=== PATIENT | male | born 2000 | race Caucasian/White ===

== ENCOUNTER 2020-02-10 16:54 | Emergency (ER) | payer OTHER ==
[2020-02-10 17:10] VITALS: BP 139/95; PULSE 105; TEMP 97.9; BMI 21.9
[2020-02-10] MEDS ORDERED: FAMOTIDINE 20 MG/50 ML IVPB 20 MG/50 ML MG IVPB ONE ×2 (17:26→17:39)
[2020-02-10] MEDS ORDERED: SODIUM CHLORIDE 1,000 ML IV STA (17:26)
[2020-02-10] MEDS ORDERED: ONDANSETRON 4 MG/2 ML VIAL IVPUSH ONE (17:27)
--- OUTSIDE RECORDS SUMMARY | 2020-02-10 17:30 | XMS ---
:2000 Author Organization [facility] Care Team Providers Name Role Phone Carmen Chakraborty Unavailable Chakraborty, Carmen Unavailable Chakraborty, Carmen Unavailable Chakraborty, Carmen Unavailable Mook Burch Unavailable [phone] CINTIA Rosenberg Unavailable Unavailable ED STAFF PHYSICIAN, STAFF Unavailable Unavailable ZUNASSIGNED Unavailable Unavailable CAMILLA ROGERS Unavailable Unavailable REYNALDO THORPE Unavailable Unavailable Re-disclosure Warning The records that you are about to access may contain information from federally- assisted alcohol or drug abuse programs. If such information is present, then the following federally mandated warning applies: This information has been disclosed to you from records protected by federal confidentiality rules (42 CFR part 2). The federal rules prohibit you from making any further disclosure of this information unless further disclosure is expressly permitted by the written consent of the person to whom it pertains or as otherwise permitted by 42 CFR part 2. A general authorization for the release of medical or other information is NOT sufficient for this purpose. The Federal rules restrict any use of the information to criminally investigate or prosecute any alcohol or drug abuse patient.The records that you are about to access may contain highly sensitive health information, the redisclosure of which is protected by Article 27-F of the [facility] Public Health law. If you continue you may haveaccess to information: Regarding HIV / AIDS; Provided by facilities licensed or operated by the [facility] Office of Mental Health; or Provided by the [facility] Office for People With Developmental Disabilities. If such information is present, then the following [facility] mandated warning applies: This information has been disclosed to you from confidential records which are protected by state law. State law prohibits you from making any further disclosure of this information without the specific written consent of the person to whom it pertains, or as otherwise permitted by law. Any unauthorized further disclosure in violation of state law may result in a fine or senior care sentence or both. A general authorization for the release of medical or other information is NOT sufficient authorization for further disclosure. Encounters Encounter Providers Location Date Indications Data Source(s ) Emergency Attender: CINTIA Madrigal 01/20/2020 [facility] OBDULIA Conway: 11:09:00 AM [facility] Center STAFF ED STAFF EDT - PHYSICIANAdmitter: 01/20/2020 CINTIA STEINER 06:06:00 PM KReferrer: EDT ZUNASSIGNED Patient discharged. Outpatient 10/20/2019 [facility] 10:39:00 AM EDT Medical C enter Outpatient 10/20/2019 [facility] 12:00:00 AM EDT Medical C enter Outpatient 10/04/2019 [facility] 11:39:00 AM EDT Medical C enter Outpatient 10/04/2019 [facility] 12:00:00 AM EDT Medical C enter Outpatient 09/20/2019 [facility] 11:51:00 AM EDT Medical C enter Outpatient Attender: Rohan 09/20/2019 [facility] CAMILLA MORRISON 09:52:00 AM EDT Medical Center CAMILLA PAdmitter: CAMILLA SAMPSON PReferrer: CAMILLA Reddy OutpatientOFFICE/ Attender: [facility] 09/20/2019 NOELGEN ([facility] OUTPATIENT VISIT, Elier Burch 09:52:00 AM EDT [facility] 09/20/2019 [place]) 09:52:00 AM EDT Outpatient 09/20/2019 [facility] 12:00:00 AM EDT Medical C enter Attender: Carmen Perkins 08/08/2019 NOELG EN ([facility] Nephrology 12:06:00 PM EDT - [facility] 08/08/2019 [facility] ) 12:06:00 PM EDT Emergency Attender: REYNALDO Madrigal 03/20/2019 [facility] Marvin au ELLEN JACOBS 03:18:00 PM [facility] - [facility] CAttender: 03/20/2019 STAFF ED STAFF 05:38:00 PM EST PHYSICIANAdmitt er: REYNALDO Soni Patient discharged. 03/20/2019 12:00:00 AM EST [facility] Outpatient 02/22/2019 10:50:00 AM EDT [facility] Outpatient 02/22/2019 12:00:00 AM EDT [facility] Outpatient 02/17/2019 11:57:00 AM EDT [facility] Outpatient 02/17/2019 12:00:00 AM EDT [facility] Immunizations Vaccine Date Status Description Data Source(s) Tdap 03/20/2019 05:05:00 PM [facility] completed [facility] Insurance Providers Payer name Policy type Policy ID Covered Covered democrat's Policy P matthew / Coverage democrat ID relationship to [facility] ormation type hussein ANGELA [id number] HEALTH NON CAP ANGELA CARE W [id number] 01 [id number] [place] [id number] [place] AFFINITY O [id number] 01 [id number] HEALTH PLAN AFFINITY O [id number] HEALTH PLAN Problems, Conditions, and Diagnoses Code Display Name Description Problem Type Effective Dates Data Source(s) Y99.9 Unspecified UNSPECIFIED Diagnosis 01/20/2020 [facility] external cause EXTERNAL CAUSE 11:09:00 AM EDT [facility] status STATUS Y92.[address] Diagnosis 01/20/2020 [facility] or not applicable OR NOT APPLICABLE 11:09:00 AM EDT Medical Center Y93.9 Activity, ACTIVITY, Diagnosis 01/20/2020 [place] unspecified UNSPECIFIED 11:09:00 AM EDT Medical Center X58.XXXA Exposure to other EXPOSURE TO OTHER Diagnosis 01/20/2020 [facility] specified SPECIFIED 11:09:00 AM EDT Medical C enter factors, initial FACTORS, INITIAL encounter ENCOUNTER T40.1X1A Poisoning by POISONING BY Diagnosis 01/20/2020 [facility] [place] [facility] heroin, HEROIN, 11:09:00 AM EDT Medical C enter accidental ACCIDENTAL (unintentional), (UNINTENTIONAL), initial encounter INIT ENCNTR R11.10 Vomiting, VOMITING, Diagnosis 01/20/2020 [facility] unspecified UNSPECIFIED 11:09:00 AM EDT Medical Center M21.612 Bunion of left BUNION OF LEFT Diagnosis 09/20/2019 [facility] foot FOOT 09:52:00 AM EDT Medical C enter M21.41 Flat foot [pes FLAT FOOT (PES Diagnosis 09/20/2019 [facility] planus] PLANUS) 09:52:00 AM EDT Medical C enter (acquired), right (ACQUIRED), RIGHT foot FOOT M21.42 Flat foot [pes FLAT FOOT (PES Diagnosis 09/20/2019 [facility] planus] PLANUS) 09:52:00 AM EDT Medical C enter (acquired), left (ACQUIRED), LEFT foot FOOT 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 09/20/2019 [facility] tendon TENDON 09:52:00 AM EDT Medical C enter (acquired), right (ACQUIRED), RIGHT ankle ANKLE 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 Diagnosis 09/20/2019 [facility] tendon TENDON 09:52:00 AM EDT Medical C enter (acquired), left (ACQUIRED), LEFT ankle ANKLE M25.571 Pain in right PAIN IN RIGHT Diagnosis 09/20/2019 [facility] joints ANKLE AND JOINTS 09:52:00 AM E DT [facility] Center of right foot OF RIGHT FOOT M25.572 Pain in left PAIN IN LEFT Diagnosis 09/20/2019 [facility] ankle and joints ANKLE AND JOINTS 09:52:00 AM E DT Medical Center of left foot OF LEFT FOOT M25.372 Other OTHER Diagnosis 09/20/2019 [facility] instability, left INSTABILITY, LEFT 09:52:00 AM EDT Medical Center ankle ANKLE Y99.0 Civilian activity CIVILIAN ACTIVITY Diagnosis 03/20/2019 [facility] done for income DONE FOR INCOME 03:18:00 PM EST Medical Center or pay OR PAY Y92.89 Other specified OTH PLACES THE Diagnosis 03/20/2019 [facility] places as the PLACE OF 03:18:00 PM EST Medica l Center place of OCCURRENCE OF THE occurrence of the EXTERNAL CAUSE external cause Y93.89 Activity, other ACTIVITY, OTHER Diagnosis 03/20/2019 [facility] specified SPECIFIED 03:18:00 PM EST Medical C enter W26.9XXA Contact with CONTACT WITH Diagnosis 03/20/2019 [facility] unspecified sharp UNSPECIFIED SHARP 03:18:00 PM [facility] Center object(s), OBJECT(S), initial encounter INITIAL ENCOUNTER S61.012A Laceration LACERATION W/O FB Diagnosis 03/20/2019 [facility] without foreign OF LEFT THUMB W/O 03:18:00 PM E [facility] body of left DAMAGE TO NAIL, thumb without INIT damage to nail, initial encounter Surgeries/Procedures Procedure Description Date Indications Data Source(s) OFFICE/OUTPATIENT 09/20/2019 [facility] ([facility] VISIT, EST 12:00:00 AM EDT - Medical Ce nter) 09/20/2019 12:00:00 AM EDT Results ID Date Data Source Liver 01/20/2020 01:20:00 PM EDT [facility] Profile.[id number] Name Value Range Interpretation Description Data Sup porting Code Source(s) Document(s ) Alkaline 38-126 <content [facility] phosphatase styleCode="Bold"> [facility] [Enzymatic Alkaline Medical activity/volume] Phosphatase (ALP) Cente r in Serum or Plasma </content>80 IU/L<content styleCode="Italic s"> (38-126 IU/L)</content> Aspartate 17-59 <content [facility] aminotransferase styleCode="Bold"> [facility] [Enzymatic Aspartate Medical activity/volume] Aminotransferase Center in Serum or Plasma (AST) </content>31 IU/L<content styleCode="Italic s"> (17-59 IU/L)</content> Alanine 7-50 <content [facility] aminotransferase styleCode="Bold"> [facility] [Enzymatic Alanine Medical activity/volume] Aminotransferase Center in Serum or Plasma (ALT) </content>19 IU/L<content styleCode="Italic s"> (7-50 IU/L)</content> Bilirubin.total 0.2-1.3 Above high <content [facility] [Mass/volume] in normal styleCode="Bold"> [facility] Serum or Plasma Bilirubin Total Medical </content>2.2 Center MG/DL H<content styleCode="Italic s"> (0.2-1.3 MG/DL)</content> UNK 0.0-0.3 <content [facility] styleCode="Bold"> [facility] Bilirubin, Direct Medical </content>< 0.2 Center MG/DL<content styleCode="Italic s"> (0.0-0.3 MG/DL)</content> Albumin 3.5-5.0 Above high <content [facility] [Mass/volume] in normal styleCode="Bold"> [facility] Serum or Plasma Albumin Medical </content>5.9 Center G/DL H<content styleCode="Italic s"> (3.5-5.0 G/DL)</content> ID Date Data Source HematologyRou.[id number] 01/20/2020 01:20:00 PM EDT [facility] 0400 Name Value Range Interpretation Description Data Sup porting Code Source(s) Document(s ) Leukocytes 4.4-11.0 Above high <content [facility] [#/volume] in normal styleCode="Bold [facility] Blood by ">White Blood Medical Automated count Cell Count Center </content>11.67 KCUMM H<content styleCode="Ital ics"> (4.4-11.0 KCUMM)</content > Erythrocytes 4.4-5.9 <content [facility] [#/volume] in styleCode="Bold [facility] Blood by ">Red Blood Medical Automated count Cell Count Center </content>5.71 MCUMM<content styleCode="Ital ics"> (4.4-5.9 MCUMM)</content > Hematocrit 41.0-53. <content [facility] [Volume 0 styleCode="Bold [facility] Fraction] of ">Hematocrit Medical Blood by </content>51.1 Center Automated count %<content styleCode="Ital ics"> (41.0-53.0 %)</content> Hemoglobin 13.5-17. Above high <content [facility] [Mass/volume] in 5 normal styleCode="Bold [facility] Blood ">Hemoglobin Medical </content>18.3 Center G/DL H<content styleCode="Ital ics"> (13.5-17.5 G/DL)</content> Erythrocyte 11.5-14. <content [facility] distribution 5 styleCode="Bold [facility] width [Ratio] by ">Red Cell Medical Automated count Distribution Center Width </content>12.1 %<content styleCode="Ital ics"> (11.5-14.5 %)</content> Erythrocyte mean 32.0-37. <content [facility] corpuscular 0 styleCode="Bold [facility] hemoglobin ">Mean Corpus. Medical concentration Hgb Center [Mass/volume] by Concentration Automated count (MCHC) </content>35.8 G/DL<content styleCode="Ital ics"> (32.0-37.0 G/DL)</content> Platelets 130-400 <content [facility] [#/volume] in styleCode="Bold [facility] Blood by ">Platelet Medical Automated count Count Center </content>231 KCUMM<content styleCode="Ital ics"> (130-400 KCUMM)</content > Erythrocyte mean 80.0-100 <content [facility] corpuscular .0 styleCode="Bold [facility] volume [Entitic ">Mean Medical volume] by Corpuscular Center Automated count Volume </content>89.5 FL<content styleCode="Ital ics"> (80.0-100.0 FL)</content> Platelet mean 8.0-11.0 <content [facility] volume [Entitic styleCode="Bold [facility] volume] in Blood ">Mean Platelet Medical by Automated Volume Center count </content>10.0 FL<content styleCode="Ital ics"> (8.0-11.0 FL)</content> Erythrocyte mean 26.0-34. <content [facility] corpuscular 0 styleCode="Bold [facility] hemoglobin ">Mean Medical [Entitic mass] Corposcular Center by Automated Hemoglobin count </content>32.0 PG<content styleCode="Ital ics"> (26.0-34.0 PG)</content> UNK 0 <content [facility] styleCode="Bold [facility] ">Nucleated Red Medical Blood Cell Center </content>0.0 /100<content styleCode="Ital ics"> (0 /100)</content> UNK 0.0 <content [facility] styleCode="Bold [facility] ">Nucleated Red Medical Blood Cell Center Count </content>0.00 KCUMM<content styleCode="Ital ics"> (0.0 KCUMM)</content > ID Date Data Source GFR(Creatinine).[id number] 01/20/2020 01:20:00 PM EDT [facility] 0-0400 Name Value Range Interpretation Code Description Data Malathi rce(s) Supporting Document(s ) UNK > 60 <content [facility] styleCode="Bold"> Medical Cent er EGFR </content>131 GFR<content styleCode="Italic s"> (> 60 GFR)</content> ID Date Data Source CHMROUTINECCDA.[id number] 01/20/2020 01:20:00 PM EDT [facility] -0400 Name Value Range Interpretation Description Data Sup porting Code Source(s) Document(s ) Lipase 23-300 <content [facility] [Enzymatic styleCode="Bold Medical activity/vo ">Lipase Center lume] in </content>113 Serum or IU/L<content Plasma styleCode="Ital ics"> (23-300 IU/L)</content> ID Date Data Source [facility].[id number] 01/20/2020 01:20:00 PM EDT [facility] Name Value Range Interpretation Description Data Sup porting Code Source(s) Document(s ) Sodium 137-145 <content [facility] [Moles/volume] in styleCode="Bold"> [facility] Serum or Plasma Sodium Medical </content>138 Center MEQ/L<content styleCode="Italic s"> (137-145 MEQ/L)</content> Chloride 98-107 Below low <content [facility] [Moles/volume] in normal styleCode="Bold"> [facility] Serum or Plasma Chloride Medical </content>94 Center MEQ/L L<content styleCode="Italic s"> (98-107 MEQ/L)</content> Carbon dioxide, 22-30 <content [facility] total styleCode="Bold"> [facility] [Moles/volume] in Carbon Dioxide Medical Serum or Plasma </content>29 Center MEQ/L<content styleCode="Italic s"> (22-30 MEQ/L)</content> Potassium 3.5-5.3 <content [facility] [Moles/volume] in styleCode="Bold"> [facility] Serum or Plasma Potassium Medical </content>3.6 Center MEQ/L<content styleCode="Italic s"> (3.5-5.3 MEQ/L)</content> Creatinine 0.5-1.3 <content [facility] [Mass/volume] in styleCode="Bold"> [facility] Serum or Plasma Creatinine Medical </content>0.8 Center MG/DL<content styleCode="Italic s"> (0.5-1.3 MG/DL)</content> UNK 9-20 <content [facility] styleCode="Bold"> [facility] BUN </content>16 Medical MG/DL<content Center styleCode="Italic s"> (9-20 MG/DL)</content> Aspartate 17-59 <content [facility] aminotransferase styleCode="Bold"> [facility] [Enzymatic Aspartate Medical activity/volume] Aminotransferase Center in Serum or Plasma (AST) </content>31 IU/L<content styleCode="Italic s"> (17-59 IU/L)</content> Glucose 74-106 <content [facility] [Mass/volume] in styleCode="Bold"> [facility] Serum or Plasma Glucose Medical </content>80 Center MG/DL<content styleCode="Italic s"> (74-106 MG/DL)</content> Calcium 8.4-10. Above high <content [facility] [Mass/volume] in 2 normal styleCode="Bold"> [facility] Serum or Plasma Calcium Medical </content>11.3 Center MG/DL H<content styleCode="Italic s"> (8.4-10.2 MG/DL)</content> Alkaline 38-126 <content [facility] phosphatase styleCode="Bold"> [facility] [Enzymatic Alkaline Medical activity/volume] Phosphatase (ALP) Cente r in Serum or Plasma </content>80 IU/L<content styleCode="Italic s"> (38-126 IU/L)</content> Alanine 7-50 <content [facility] aminotransferase styleCode="Bold"> [facility] [Enzymatic Alanine Medical activity/volume] Aminotransferase Center in Serum or Plasma (ALT) </content>19 IU/L<content styleCode="Italic s"> (7-50 IU/L)</content> UNK > 60 <content [facility] styleCode="Bold"> [facility] EGFR Medical </content>131 Center GFR<content styleCode="Italic s"> (> 60 GFR)</content> Bilirubin.total 0.2-1.3 Above high <content [facility] [Mass/volume] in normal styleCode="Bold"> [facility] Serum or Plasma Bilirubin Total Medical </content>2.2 Center MG/DL H<content styleCode="Italic s"> (0.2-1.3 MG/DL)</content> Albumin 3.5-5.0 Above high <content [facility] [Mass/volume] in normal styleCode="Bold"> [facility] Serum or Plasma Albumin Medical </content>5.9 Center G/DL H<content styleCode="Italic s"> (3.5-5.0 G/DL)</content> Procedure Social History Code Duration Value Status Description Data Source(s ) Smoking 01/20/2020 Denies Ever completed Denies Ever [facility] 11:45:00 AM EDT Smoked Smoked Medical C enter Smoking 01/20/2020 Denies Ever completed Denies Ever [place] 11:16:00 AM EDT Smoked Smoked Medical C enter Caffeine Use 09/20/2019 completed [facility] ([facility] nt Details 12:00:00 AM EDT [facility]) Smoking 09/20/2019 Unknown if completed Unknown if ever [facility] ( [facility] 12:00:00 AM EDT ever smoked smoked [facility]) Smoking 03/20/2019 Denies Ever completed Denies Ever [place] 04:41:00 PM EST Smoked Smoked Medical C enter Smoking 03/20/2019 Denies Ever completed Denies Ever [place] 03:47:00 PM EST Smoked Smoked Medical C enter Smoking 03/20/2019 Denies Ever completed Denies Ever [place] 03:37:00 PM EST Smoked Smoked Medical C enter Vital Signs ID Date Data Source UNK Name Value Range Interpretation Code Description Data Source(s) Body temperature 36.448071 36.191905 [facility] Respiratory rate 18 /min 18 /min [facility] Oxygen saturation 99 % 99 % [facility] Arterial blood Medical Center by Pulse oximetry Heart rate 96 /min 96 /min [facility] Diastolic blood 75 mm[Hg] 75 mm[Hg] [facility] Systolic blood 148 mm[Hg] 148 mm[Hg] [facility] Body temperature 36.505210 36.911152 [facility] Respiratory rate 18 /min 18 /min [facility] Oxygen saturation 98 % 98 % [facility] Arterial blood [facility] by Pulse oximetry Heart rate 111 /min 111 /min [facility] Diastolic blood 80 mm[Hg] 80 mm[Hg] [facility] Systolic blood 169 mm[Hg] 169 mm[Hg] [facility] Respiratory rate 20 /min 20 /min [facility] ([facility]) Body temperature 37.00 Arlene 37.00 [facility]lene [facility] Heart rate 100 /min 100 /min [facility] ([facility]) Diastolic blood 88 mm[Hg] 88 mm[Hg] [facility] ( [facility]) Systolic blood 144 mm[Hg] 144 mm[Hg] [facility] Body height 156.49 cm 156.49 cm [facility] ([facility]) Body temperature 36.523923 36.084189 [facility] Respiratory rate 16 /min 16 /min [facility] Oxygen saturation 99 % 99 % [facility] blood [facility] by Pulse oximetry Heart rate 80 /min 80 /min [facility] Diastolic blood 78 mm[Hg] 78 mm[Hg] [facility] Systolic blood 121 mm[Hg] 121 mm[Hg] [facility] Body temperature 36.894678 36.416666 [facility] Respiratory rate 18 /min 18 /min [facility] Oxygen saturation 99 % 99 % [facility] blood [facility] by Pulse oximetry Heart rate 82 /min 82 /min [facility] Diastolic blood 80 mm[Hg] 80 mm[Hg] [facility] Systolic blood 123 mm[Hg] 123 mm[Hg] [facility] Body temperature 36.785092 36.016487 [facility] Respiratory rate 18 /min 18 /min [facility] Oxygen saturation 98 % 98 % [facility] in Arterial blood [facility] Center by Pulse oximetry Heart rate 91 /min 91 /min [facility] Diastolic blood 92 mm[Hg] 92 mm[Hg] [facility] Systolic blood 148 mm[Hg] 148 mm[Hg] [facility]
[2020-02-10 18:01] LABS: BASO % 0.7 % (0-2.0); EOS % 0.5 % (0-4.5); HEMATOCRIT 47.4 % (35.4-49); HEMOGLOBIN 16.7 GM/dL (11.7-16.9); LYMPH % 15.2 % (8-40); MCH 31.4 pg (25.7-33.7); MCHC 35.3 g/dl (32.0-35.9); NEUT % 71.6 % (42.8-82.8); PLATELET COUNT 294 K/MM3 (134-434); RBC 5.32 M/mm3 (4.00-5.60); WHITE BLOOD COUNT 10.5 K/mm3 (4.0-10.0)
--- NOTE | 2020-02-10 18:01 | PDOC ---
History of Present Illness - General Chief Complaint: Nausea/Vomiting Stated Complaint: VOMITTING Time Seen by Provider: 02/10/20 17:19 History Source: Patient Exam Limitations: No Limitations - History of Present Illness Initial Comments: 02/10/20 17:57 Patient is a 19-year-old male with no past medical history who presents to the ED with complaint of nausea and vomiting since yesterday. He states everything he eats or drinks he has been vomiting since yesterday. This morning he felt even worse so he decided to come to the ED for evaluation. He states 2 days ago he began to feel unwell and also started complaining of a dry cough. He denies any fevers or chills. He states he smokes marijuana daily and tried smoking today but he states it did not help him. He denies any shortness of breath or chest pain. The patient states at this point he is not even tolerating liquids. He denies any allergies to medications. Past History - Medical History Allergies/Adverse Reactions: Allergies Allergy/AdvReac Type Severity Reaction Status Date / Time No Known Allergies Allergy Verified 02/10/20 17:06 Home Medications: Ambulatory Orders NK [No Known Home Medication] 02/10/20 COPD: No - Psycho-Social/Smoking History Smoking History: Current every day smoker Have you smoked in the past 12 months: Yes Number of Cigarettes Smoked Daily: 3 Information on smoking cessation initiated: Yes - Substance Abuse Hx (Audit-C & DAST Scrn) How often the patient has a drink containing alcohol: Never Score: In Men: 4 or > Positive; In Women: 3 or > Positive: 0 Screen Result (Pos requires Nsg. Audit-10AR): Negative In the last yr the pt used illegal drug/Rx for NonMed reason: Yes Score: Yes response is considered Positive: 1 Screen Result (Positive result requires Nsg. DAST-10): Positive Review of Systems - Review of Systems Comments:: 02/10/20 17:58 - Review of Systems Able to Perform ROS?: Yes Constitutional: No: Fever, Chills, Loss of Appetite, Night Sweats, Weakness HEENTM: No: Eye Pain, Vision changes, Ear Pain, Throat Pain, Throat Swelling, Mouth Pain, Difficulty Swallowing Respiratory: No: Cough, Shortness of Breath, Wheezing, Sputum Production Cardiac (ROS): No: Chest Pain, Chest Tightness, Palpitations, Irregular Heart Beat, Edema ABD/GI: No: Abdominal Pain, Diarrhea, positive: Nausea, Vomiting : No Dysuria, No Hematuria, No Frequency, No Urgency Musculoskeletal: No: Muscle Pain, Back Pain, Joint Pain, Muscle Weakness, Neck Pain Integumentary: No: Lesions, Rash Neurological: No: Headache, Numbness, Tingling, Weakness, Speech Difficulties *Physical Exam - Vital Signs Last Vital Signs Temp Pulse Resp BP Pulse Ox 97.9 F 105 H 18 139/95 100 02/10/20 17:06 02/10/20 17:06 02/10/20 17:06 02/10/20 17:06 02/10/20 17:06 - Physical Exam 02/10/20 17:59 - Physical Exam General Appearance: Nourished, Appropriately Dressed, No Distress HEENT: EOMI, Normal Voice, Hearing Grossly Normal; slightly dry oral mucosa Neck: Supple, No Lymphadenopathy (R), No Lymphadenopathy (L), No Rigidity, No Decreased range of motion Respiratory/Chest: Lungs Clear, Normal Breath Sounds. No Respiratory Distress, No Accessory Muscle Use; clear lungs, no adventitious lung sounds, good air entry bilaterally Cardiovascular: Regular Rhythm, mild tachycardia at 105 bpm, S1, S2 Gastrointestinal/Abdominal: Normal Bowel Sounds, Soft. Non-tender, No Guarding, No Rebound, No Rigidity; no reproducible abdominal pain Musculoskeletal: Normal Inspection. No Decreased Range of Motion Extremity: Normal Capillary Refill, Normal Inspection Integumentary: Normal Color, Dry. 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 NML intact, Fully Oriented, Alert, Normal Mood/Affect, Normal Response ED Treatment Course - LABORATORY CBC & Chemistry Diagram: 02/10/20 17:53 02/10/20 17:53 - ADDITIONAL ORDERS Additional order review: 02/10/20 20:22 Laboratory Tests 02/10/20 19:22 Urine Color Yellow Urine Appearance Turbid Urine pH 8.0 Ur Specific [place] 1.027 Urine Protein Trace Urine Glucose (UA) Negative Urine Ketones 3+ H Urine Blood 1+ H Urine Nitrite Negative Urine Bilirubin Negative Urine Urobilinogen 1.0 Ur Leukocyte Esterase Trace Urine WBC (Auto) 5 Urine RBC (Auto) 140 Urine Casts (Auto) 2 U Epithel Cells (Auto) 5 Urine Bacteria (Auto) 6 Medical Decision Making - Medical Decision Making 02/10/20 18:00 Assessment: Patient is a 19-year-old male with nausea, vomiting and a dry cough for the last 2 days. Plan: -Saline lock and 1 L of NS ordered -Labs ordered -Zofran and Pepcid ordered -COVID swab -Will reassess 02/10/20 19:26 Pt is feeling much better after fluids and medications. He is attempting a PO challenge at this time. His labs are within normal limits, but his urine is still pending. Will reassess. 02/10/20 20:22 The patient's urine does not show evidence of infection at this time. He tolerated a p.o. challenge without difficulty. The patient has been advised to eat a brat diet for the next several days and increase fluids. He understands and agrees with this treatment plan and he is stable for discharge. Discharge - Discharge Information Problems reviewed: Yes Clinical Impression/Diagnosis: Nausea and vomiting Qualifiers: Vomiting type: unspecified Vomiting Intractability: non-intractable Qualified Code(s): R11.2 - Nausea with vomiting, unspecified Condition: Stable Disposition: HOME - Follow up/Referral Referrals: Sacha Vinson [Primary Care Provider] - 24 hours - Patient Discharge Instructions Patient Printed Discharge Instructions: DI for Vomiting -- Adult Additional Instructions: Eat a bland diet for the next several days and drink plenty of fluids. Avoid any fried, greasy, fatty foods for the next several days as this will unsettled your stomach. Be sure to follow-up with your primary doctor within 1 to 2 days for repeat evaluation. - Post Discharge Activity Work/Back to School Note: Back to Work
[2020-02-10 18:31] LABS: ALBUMIN 4.7 g/dl (3.4-5.0); BILIRUBIN,TOTAL 1.7 mg/dL (0.2-1); BLOOD UREA NITROGEN 11.2 mg/dL (7-18); CALCIUM 9.9 mg/dL (8.5-10.1); POTASSIUM 3.7 mmol/L (3.5-5.1); TOT PROT 8.4 g/dl (6.4-8.2)
[2020-02-10 19:50] LABS: PLATELET ESTIMATE ADEQUATE
[2020-02-10 20:13] LABS: EPI CELLS 5 /uL (0-25.1); HYALINE CASTS 2 /uL (0-3.1); URINE APPEARANCE TURBID; URINE BACTERIA 6 /uL (0-1359); URINE BILIRUBIN NEGATIVE (NEGATIVE); URINE COLOR YELLOW; URINE GLUCOSE (UA) NEGATIVE (NEGATIVE); URINE KETONE 3+ (NEGATIVE); URINE LEUK ESTERASE TRACE (NEGATIVE); URINE NITRITE NEGATIVE (NEGATIVE); URINE PROTEIN TRACE (NEGATIVE); URINE RBC 140 /uL (0-23.9); URINE WBC 5 /uL (0-25.8)
== END 2020-02-10 20:56 | disposition home or self-care (01) ==
LOC: JER 16:54
PROC: 3E033GC Introduction of Other Therapeutic Substance into Peripheral Vein, Percutaneous Approach (ICD-10-PCS; principal; 2020-02-10)
PROC: 3E0337Z Introduction of Electrolytic and Water Balance Substance into Peripheral Vein, Percutaneous Approach (ICD-10-PCS; 2020-02-10)
DX: R11.2 Nausea with vomiting, unspecified (principal)
CPT/HCPCS: 36415; 71046-TC-FY; 80053; 81003; 83690; 85025; 87086; 99285-25; C9803; U0003

== ENCOUNTER 2021-08-22 10:20 | Emergency (ER) | payer OTHER ==
[2021-08-22 10:32] VITALS: TEMP 98; BMI 21.5
[2021-08-22] MEDS ORDERED: LACTATED RINGERS SOLUTION 1000 ML INFUS.BAG IV ONE (11:02)
[2021-08-22] MEDS ORDERED: ACETAMINOPHEN 1000 MG/100 ML BAG IVPB ONE (11:02)
[2021-08-22] MEDS ORDERED: ONDANSETRON 4 MG/2 ML VIAL IVPUSH ONE (11:03)
[2021-08-22] MEDS ORDERED: ONDANSETRON 4 MG/2 ML VIAL ONE (11:04)
[2021-08-22] MEDS ORDERED: ACETAMINOPHEN INJECTION 100 ML IVPB ONE (11:04)
[2021-08-22 11:48] LABS: BASO % 0.3 % (0-2.0); EOS % 0.3 % (0-4.5); HEMATOCRIT 46.2 % (35.4-49); HEMOGLOBIN 16.3 GM/dL (11.7-16.9); LYMPH % 4.5 % (8-40); MCH 30.9 pg (25.7-33.7); MCHC 35.4 g/dl (32.0-35.9); MEAN CELL VOLUME 87.4 fl (80-96); MEAN PLT VOLUME 7.5 fl (7.5-11.1); NEUT % 88.9 % (42.8-82.8); PLATELET COUNT 354 10^3/uL (134-434); RBC 5.28 M/mm3 (4.00-5.60); RDW 12.9 % (11.9-15.9); WHITE BLOOD COUNT 15.5 K/mm3 (4.0-10.0)
[2021-08-22 12:13] LABS: CALCIUM 10.6 mg/dL (8.5-10.1)
[2021-08-22 12:14] LABS: ALBUMIN 4.5 g/dl (3.4-5.0); BLOOD UREA NITROGEN 11.9 mg/dL (7-18)
[2021-08-22 12:15] LABS: CREATININE 0.9 mg/dL (0.55-1.3)
[2021-08-22 12:17] LABS: BILIRUBIN,TOTAL 1.3 mg/dL (0.2-1); TOT PROT 8.3 g/dl (6.4-8.2)
[2021-08-22 12:19] LABS: EPI CELLS 4 /uL (0-25.1); HYALINE CASTS 2 /uL (0-3.1); PH,URINE >= 9.0 (5.0-8.0); URINE APPEARANCE CLOUDY; URINE BACTERIA 167 /uL (0-1359); URINE BILIRUBIN NEGATIVE (NEGATIVE); URINE COLOR YELLOW; URINE GLUCOSE (UA) NEGATIVE (NEGATIVE); URINE KETONE 2+ (NEGATIVE); URINE LEUK ESTERASE NEGATIVE (NEGATIVE); URINE NITRITE NEGATIVE (NEGATIVE); URINE PROTEIN 1+ (NEGATIVE); URINE RBC 54 /uL (0-23.9); URINE WBC 18 /uL (0-25.8)
[2021-08-22 12:30] LABS: METHADONE, UR NEGATIVE (NEGATIVE)
[2021-08-22] MEDS ORDERED: POTASSIUM CHLORIDE TABS 20 MEQ TABLET.ER (FP) PO ONE ×2 (12:30→12:31)
[2021-08-22] MEDS ORDERED: SODIUM CHLORIDE 0.9% 500 ML INFUS.BAG IV ONE (12:30)
[2021-08-22 12:31] LABS: PHENCYCLIDINE,URINE NEGATIVE (NEGATIVE); URINE BENZODIAZEPINES NEGATIVE (NEGATIVE)
[2021-08-22 12:34] LABS: COCAINE, UR POSITIVE (NEGATIVE); OPIATES, URI POSITIVE (NEGATIVE); URINE AMPHETAMINES NEGATIVE (NEGATIVE); URINE BARBITURATES NEGATIVE (NEGATIVE)
[2021-08-22 16:01] VITALS: BP 132/80; PULSE 96
== END 2021-08-22 16:02 | disposition home or self-care (01) ==
LOC: JER 10:20
PROC: 3E0333Z Introduction of Anti-inflammatory into Peripheral Vein, Percutaneous Approach (ICD-10-PCS; principal; 2021-08-22)
PROC: 3E033GC Introduction of Other Therapeutic Substance into Peripheral Vein, Percutaneous Approach (ICD-10-PCS; 2021-08-22)
DX: E86.0 Dehydration (principal)
CPT/HCPCS: 36415; 80053; 80307; 81003; 85025; 87086; 99284-25

== ENCOUNTER 2021-10-09 12:23 | Emergency (ER) | payer OTHER ==
[2021-10-09 12:48] VITALS: BP 117/72; PULSE 83; TEMP 97.9; BMI 20.1
== END 2021-10-09 14:50 | disposition left against medical advice (07) ==
LOC: JER 12:23
DX: F19.10 Other psychoactive substance abuse, uncomplicated (principal)
CPT/HCPCS: 99281-25